=== PATIENT | female | born 1985 | race Hispanic/Latino ===

== ENCOUNTER 2022-11-01 13:29 | Outpatient (CLI) | payer BC | END 2022-11-01 13:30 | disposition home or self-care (01) | LOC: BICMAMMO 13:29 | PROVIDERS: ATTEND Nurse Practitioner Family | DX: N64.52 Nipple discharge (principal) | CPT/HCPCS: 77066; G0279 ==

== ENCOUNTER 2024-01-10 07:55 | Outpatient (CLI) | payer BC | END 2024-01-10 07:56 | disposition home or self-care (01) | LOC: BICMAMMO 07:55 | PROVIDERS: ATTEND Nurse Practitioner Family | DX: N63.41 Unspecified lump in right breast, subareolar (principal); N64.4 Mastodynia | CPT/HCPCS: 77066; G0279 ==